=== PATIENT | male | born 1985 | race Caucasian/White ===

== ENCOUNTER 2017-12-19 06:47 | Observation (INO) | payer OTHER ==
[~2017-12-19] VITALS: Ht 188 cm; Wt 63.5 kg
[2017-12-19 07:55] LABS: Hematocrit 41.4 % (37.0-53.0); Hemoglobin 14.2 g/dL (13.5-17.5); Mean Corpuscular HGB 29.8 pg (26.0-34.0); Mean Corpuscular HGB Conc 34.3 g/dL (31.5-36.5); Mean Corpuscular Volume 87 fL (80-100); Mean Platelet Volume 10.4 fL (9.1-12.4); Platelet Count 224 K/mm3 (150-400); RDW Coefficient Variation 12.6 % (11.7-14.2); RDW Standard Deviation 40.1 fL (35.1-46.3); Red Blood Cell Count 4.77 M/mm3 (4.30-5.90); White Blood Cell Count 12.63 K/mm3 (4.00-11.30)
[2017-12-19 08:15] LABS: BASOPHILS PERCENT MAN 0 % (0-2); EOSINOPHILS PERCENT MAN 0 % (0-6); LYMPHOCYTES ABSOLUTE MAN 1.51 K/mm3 (0.84-5.20); LYMPHOCYTES PERCENT MAN 12 % (21-46); MONOCYTES ABSOLUTE MAN 0.75 K/mm3 (0.16-1.47); MONOCYTES PERCENT MAN 6 % (4-13); NEUTROPHILS ABSOLUTE MAN 10.35 K/mm3 (1.96-9.15); SEG NEUTROPHILS PERCENT MAN 82 % (41-73); TOTAL CELLS COUNTED 100
[2017-12-19 08:19] LABS: Alanine Aminotransfer (ALT/SGP 21 U/L (12-78); Albumin, Blood 4.1 g/dL (3.4-5.0); Albumin/Globulin Ratio 1.2 (0.8-1.8); Alk Phos 70 U/L (50-136); Anion Gap 13 mmol/L (6-16); Aspartate Aminotrans (AST/SGOT 23 U/L (12-37); Bilirubin, Total 0.5 mg/dL (0.1-1.0); Blood Urea Nitrogen 19 mg/dL (8-24); Bun/Creatinine Ratio 23.3 (12.0-20.0); CO2, Blood 21 mmol/L (21-32); Calcium, Blood 8.9 mg/dL (8.5-10.1); Chloride, Blood 106 mmol/L (98-108); Creatinine, Blood 0.82 mg/dL (0.60-1.20); Ethanol (Alcohol), Blood, Med <3 mg/dL; Globulin, Blood 3.5 g/dL (2.2-4.0); Glomerular Filtration Rate >60 (60-); Glucose, Blood 102 mg/dL (70-99); Potassium, Blood 3.7 mmol/L (3.5-5.5); Salicylate 4.5 mg/dL (2.8-20.0); Sodium, Blood 140 mmol/L (136-145); Total Protein, Blood 7.6 g/dL (6.4-8.2)
[2017-12-19 08:23] LABS: Thyroid Stimulating Hormone 0.947 uIU/mL (0.360-4.800)
[2017-12-19 08:24] LABS: Acetaminophen, Random <2.0 ug/mL (10.0-30.0)
[2017-12-19] MEDS ORDERED: OLAN5 PO (18:09)
== END 2017-12-19 19:16 | disposition home or self-care (01) ==
LOC: ER 06:47 → EOR 06:48
PROVIDERS: Emergency Medicine
DX: F23 Brief psychotic disorder (principal); F15.90 Other stimulant use, unspecified, uncomplicated; F12.90 Cannabis use, unspecified, uncomplicated
CPT/HCPCS: 36415; 80053; 84443; 85025; 96372; 99285; G0378; G0480; J1200; J1630; J2060; Q0163

== ENCOUNTER 2020-03-03 19:00 | Inpatient (IN) | payer OTHER ==
[~2020-03-03] VITALS: Ht 182.9 cm; Wt 65.6 kg
[~2020-03-03 19:00] MED LIST: OLAN5 PO
[2020-03-03 19:29] LABS: Hematocrit 37.3 % (37.0-53.0); Hemoglobin 13.3 g/dL (13.5-17.5); Mean Corpuscular HGB 29.8 pg (26.0-34.0); Mean Corpuscular HGB Conc 35.7 g/dL (31.5-36.5); Mean Corpuscular Volume 84 fL (80-100); Mean Platelet Volume 10.7 fL (9.1-12.4); RDW Coefficient Variation 12.9 % (11.7-14.2); RDW Standard Deviation 39.3 fL (35.1-46.3); Red Blood Cell Count 4.46 M/mm3 (4.30-5.90); White Blood Cell Count 9.01 K/mm3 (4.00-11.30)
[2020-03-03 19:45] LABS: Platelet Count 30 K/mm3 (150-400)
[2020-03-03 19:48] LABS: BAND PERCENT MAN 17 % (0-8); BASOPHILS PERCENT MAN 0 % (0-2); EOSINOPHILS ABSOLUTE MAN 0.18 K/mm3 (0.00-0.68); EOSINOPHILS PERCENT MAN 2 % (0-6); LYMPHOCYTES ABSOLUTE MAN 0.36 K/mm3 (0.84-5.20); LYMPHOCYTES PERCENT MAN 4 % (21-46); MONOCYTES ABSOLUTE MAN 0.81 K/mm3 (0.16-1.47); MONOCYTES PERCENT MAN 9 % (4-13); NEUTROPHILS ABSOLUTE MAN 7.65 K/mm3 (1.96-9.15); SEG NEUTROPHILS PERCENT MAN 68 % (41-73); TOTAL CELLS COUNTED 100
[2020-03-03 19:52] LABS: Source, Urine Clean Catch
[2020-03-03 19:54] LABS: Bilirubin, Urine Neg (Neg); Blood, Urine 4+ (Neg); Glucose Qualitative, Urine Neg (Neg); Ketones, Urine Neg (Neg); Leukocyte Esterase, Urine Neg (Neg); Nitrite, Urine Neg (Neg); Protein, Urine 2+ (Neg); Urobilinogen, Urine NORM (Normal)
[2020-03-03 19:59] LABS: Appearance, Urine Clear (Clear); Color, Urine Yellow (P-Yellow)
[2020-03-03 20:01] LABS: Bacteria Few /hpf; Mucus Light (0-Heavy); Squamous Epithelial Cells Rare /hpf (Few); White Blood Cells, Urine 0-2 /hpf (0-5)
[2020-03-03 20:05] LABS: U Amphetamine Screen DETECTED; U Barbituate Screen Not Detected; U Benzodiazapine Screen Not Detected; U Buprenorphine Screen Not Detected; U Cannabinoids Screen DETECTED; U Cocaine Screen Not Detected; U Methadone Screen Not Detected; U Methamphetamine Screen DETECTED; U Opiates Screen Not Detected; U Oxycodone Screen Not Detected; U Phencyclidine Screen Not Detected; U Propoxyphene Screen Not Detected
[2020-03-03 20:14] LABS: Alanine Aminotransfer (ALT/SGP 361 U/L (12-78); Albumin, Blood 2.6 g/dL (3.4-5.0); Albumin/Globulin Ratio 0.8 (0.8-1.8); Alk Phos 331 U/L (50-136); Anion Gap 11 mmol/L (6-16); Aspartate Aminotrans (AST/SGOT 323 U/L (12-37); Bilirubin, Total 1.9 mg/dL (0.1-1.0); Blood Urea Nitrogen 15 mg/dL (8-24); Bun/Creatinine Ratio 20.8 (12.0-20.0); CO2, Blood 22 mmol/L (21-32); Calcium, Blood 7.9 mg/dL (8.5-10.1); Chloride, Blood 98 mmol/L (98-108); Creatinine, Blood 0.72 mg/dL (0.60-1.20); Globulin, Blood 3.4 g/dL (2.2-4.0); Glomerular Filtration Rate >60 (60-); Glucose, Blood 102 mg/dL (70-99); Potassium, Blood 3.4 mmol/L (3.5-5.5); Sodium, Blood 131 mmol/L (136-145)
[2020-03-03 21:29] LABS: CPK Creatine Kinase 48 U/L (39-308); Ethanol (Alcohol), Blood, Med <3 mg/dL
[2020-03-03 21:30] LABS: Prothrombin Time Results 10.7 Sec (9.7-11.5)
--- NOTE | 2020-03-03 23:15 | NUR ---
ADMISSION TO PCU Report recieved from Sree Harper and pt arrived to PCU at 2230. Alert and oriented, potassium chloride infusing into LFA PIV and NS infusing. Per ED RN Sree, second liter of NS is what is currently infusing. VSS at time of arrival. Pt immediately needed to void, urinal given and pt voided independantly at bedside. He transferred independantly from [facility] to bed. Tele showing NSR in 70-80's. Pt denying pain at this time. See admission assessment for detailed systems assessment. Pt denies methamphetamine or amphetamine usage, however tox screen shows positive on both. monitoring closely for withdrawl symptoms. Pt is sleepy, arrousable, expresses needs with call light.
--- NOTE | 2020-03-04 00:56 | NUR ---
UPDATE HR increase to 120, temperature 100.4, pt shaking in bed stating "I'm so cold". Bilateral upper extremities clenched tightly and contracted with color change to bilateral forearms, pt able to relax arms and color in bilateral upper extremities normalizes. BP slightly elevated, respiration rate increased, oxygen saturations >95%. 2L oxygen placed on pt, tylenol give. Pt positive for meth and appears to be withdrawing. He is fully alert and oriented. 0.5 mg dilauded given per eMar and pt shaking slowed, BP wnl, respiration rate normalized and pt endorses relief within 4 minutes of administration. Will continue to monitor. primer charger aware.
[2020-03-04 04:09] LABS: BASOPHILS ABSOLUTE AUTO 0.05 K/mm3 (0.00-0.23); BASOPHILS PERCENT AUTO 0 % (0-2); Hematocrit 37.3 % (37.0-53.0); Hemoglobin 12.7 g/dL (13.5-17.5); LYMPHOCYTES ABSOLUTE AUTO 0.35 K/mm3 (0.84-5.20); LYMPHOCYTES PERCENT AUTO 3 % (21-46); MONOCYTES ABSOLUTE AUTO 0.75 K/mm3 (0.16-1.47); MONOCYTES PERCENT AUTO 7 % (4-13); Mean Corpuscular HGB 29.5 pg (26.0-34.0); Mean Platelet Volume 10.9 fL (9.1-12.4); RDW Coefficient Variation 13.2 % (11.7-14.2); RDW Standard Deviation 42.1 fL (35.1-46.3); Red Blood Cell Count 4.31 M/mm3 (4.30-5.90); White Blood Cell Count 11.22 K/mm3 (4.00-11.30)
[2020-03-04 04:14] LABS: EOSINOPHILS ABSOLUTE AUTO 0.05 K/mm3 (0.00-0.68); EOSINOPHILS PERCENT AUTO 0 % (0-6); IMMATURE GRAN ABSOLUTE AUTO 0.07 K/mm3 (0.00-0.10); IMMATURE GRAN PERCENT AUTO 1 % (0-1); Mean Corpuscular Volume 87 fL (80-100); NEUTROPHILS ABSOLUTE AUTO 9.95 K/mm3 (1.96-9.15); NEUTROPHILS PERCENT AUTO 89 % (41-73)
[2020-03-04 04:15] LABS: Platelet Count 27 K/mm3 (150-400)
[2020-03-04 04:25] LABS: Alanine Aminotransfer (ALT/SGP 302 U/L (12-78); Albumin, Blood 2.2 g/dL (3.4-5.0); Albumin/Globulin Ratio 0.7 (0.8-1.8); Alk Phos 350 U/L (50-136); Anion Gap 9 mmol/L (6-16); Aspartate Aminotrans (AST/SGOT 235 U/L (12-37); Bilirubin, Total 2.5 mg/dL (0.1-1.0); Blood Urea Nitrogen 15 mg/dL (8-24); Bun/Creatinine Ratio 17.3 (12.0-20.0); CO2, Blood 19 mmol/L (21-32); Calcium, Blood 7.3 mg/dL (8.5-10.1); Chloride, Blood 108 mmol/L (98-108); Creatinine, Blood 0.87 mg/dL (0.60-1.20); Globulin, Blood 3.3 g/dL (2.2-4.0); Glomerular Filtration Rate >60 (60-); Glucose, Blood 95 mg/dL (70-99); Potassium, Blood 3.6 mmol/L (3.5-5.5); Sodium, Blood 136 mmol/L (136-145); Total Protein, Blood 5.5 g/dL (6.4-8.2)
--- NOTE | 2020-03-04 07:50 | NUR ---
SHIFT SUMMARY See previous notes for acute events overnight. Alert and oriented, sleeping on and off throughout shift, voiding independantly at bedside, NS infusing at 150 mls/hr per orders. ABx infusing per orders. Pt medicated for pain as needed, tylenol for fever. Pt endorses continued pain "but it's manageable right now". Report off to ANDREIA Bull, who assumes care.
--- NOTE | 2020-03-04 17:34 | NUR ---
SHIFT SUMMARY PT ALERT AND ORIENTED. VS STABLE. HR NSR. PT COMPLAINS OF HEADACHE THROUGHOUT SHIFT AND PAIN "EVERYWHERE". PT MEDICATED NEEDED. PT PULLED TWO IV'S THIS SHIFT. NEW IV PLACED TO LEFT AC. NS INFUSING PER ORDERS. PT INDEPENDENT IN THE ROOM. WILL CONTINUE TO MONITOR AND REPORT TO ONCOMING RN. CALL LIGHT IN REACH.
[2020-03-05 04:10] LABS: BASOPHILS ABSOLUTE AUTO 0.03 K/mm3 (0.00-0.23); BASOPHILS PERCENT AUTO 0 % (0-2); EOSINOPHILS ABSOLUTE AUTO 0.19 K/mm3 (0.00-0.68); EOSINOPHILS PERCENT AUTO 2 % (0-6); Hematocrit 33.9 % (37.0-53.0); Hemoglobin 11.6 g/dL (13.5-17.5); IMMATURE GRAN ABSOLUTE AUTO 0.06 K/mm3 (0.00-0.10); IMMATURE GRAN PERCENT AUTO 1 % (0-1); LYMPHOCYTES ABSOLUTE AUTO 1.73 K/mm3 (0.84-5.20); LYMPHOCYTES PERCENT AUTO 22 % (21-46); MONOCYTES ABSOLUTE AUTO 1.49 K/mm3 (0.16-1.47); MONOCYTES PERCENT AUTO 19 % (4-13); Mean Corpuscular HGB 29.9 pg (26.0-34.0); Mean Corpuscular HGB Conc 34.2 g/dL (31.5-36.5); Mean Corpuscular Volume 87 fL (80-100); NEUTROPHILS ABSOLUTE AUTO 4.29 K/mm3 (1.96-9.15); NEUTROPHILS PERCENT AUTO 55 % (41-73); RDW Coefficient Variation 14.1 % (11.7-14.2); RDW Standard Deviation 45.3 fL (35.1-46.3); Red Blood Cell Count 3.88 M/mm3 (4.30-5.90); White Blood Cell Count 7.79 K/mm3 (4.00-11.30)
[2020-03-05 04:14] LABS: Platelet Count 28 K/mm3 (150-400)
[2020-03-05 04:30] LABS: Albumin, Blood 1.9 g/dL (3.4-5.0); Anion Gap 7 mmol/L (6-16); Blood Urea Nitrogen 12 mg/dL (8-24); Bun/Creatinine Ratio 14.9 (12.0-20.0); CO2, Blood 23 mmol/L (21-32); Calcium, Blood 7.2 mg/dL (8.5-10.1); Chloride, Blood 111 mmol/L (98-108); Glomerular Filtration Rate >60 (60-); Glucose, Blood 93 mg/dL (70-99); Phosphorus, Blood 3.5 mg/dL (2.5-4.9); Potassium, Blood 3.8 mmol/L (3.5-5.5); Sodium, Blood 141 mmol/L (136-145)
--- NOTE | 2020-03-05 05:13 | NUR ---
SHIFT SUMMARY PT SLEEPING IN ROOM COMFORTABLY AT THIS TIME. NO ACUTE CHANGES IN STATUS T/O NIGHT. PT SLEPT WELL. WOKE OCCASIONALLY TO ASK FOR MORE PAIN MEDS. PT REFUSING TYLENOL, PT REPORTS "IT DIDN'T WORK EARLIER, WHEN THE PAIN COMES IT FEELS LIKE MY BRAIN IS EXPLODING". PT WAS MEDICATED PER EMAR FOR PAIN. RESP EVEN UNLABORED ON RA W/ SATS >92%. PT DENIED CP OR SOB T/O NIGHT. DENIED OTHER NEEDS. PT IND IN ROOM USING URINAL AT BEDSIDE. CALL LIGHT IN REACH.
[2020-03-05 08:09] LABS: HBSAG SCREEN Negative (Negative); HEP A AB, IGM Negative (Negative); HEP B CORE AB, IGM Negative (Negative); HEP C VIRUS AB <0.1 (0.0-0.9)
[2020-03-05 08:47] LABS: EBV AB VCA, IGM <36.0 U/mL (0.0-35.9)
--- NOTE | 2020-03-05 18:16 | NUR ---
PCU DISCHARGE SUMMARY PATIENT LEFT UNIT VIA AMBULATION OUT OF HOSPITAL ACCOMPANIED BY THIS RN TO ER TENT. PATIENT REPORTED THAT HE FELT OKAY. NO S/SX OF DISTRESS NOTED. PATIENT EDUCATED FOR FOLLOW UP APPTS AND LIFE STYLE CHANGES FOR NEW DIAGNOSIS AND POSSIBLE HEP C. APPTS MADE WITH MD GOEL AND MD GARIBAY. PATIENT VERBALIZED UNDERSTANDING. PATIENT ALSO VERBALIZED UNDERSTANDING OF ETOH AND SMOKING CESSATION. PATIENTS MOTHER UPDATED ON DISCHARGE INSTRUCTIONS AND HOSPITAL CARE/FINDINGS. PATIENT LEFT FOR HOME WITH MOTHER AND BELONGINGS WITH PATIENT.
== END 2020-03-05 15:00 | disposition home or self-care (01) | DRG 442 ==
LOC: ER 19:00 → PCU 22:15
PROVIDERS: Emergency Medicine; Family Medicine; Nurse Practitioner Acute Care; ADMIT Internal Medicine
DX: B17.9 Acute viral hepatitis, unspecified (principal); E87.1 Hypo-osmolality and hyponatremia; F17.210 Nicotine dependence, cigarettes, uncomplicated; D69.6 Thrombocytopenia, unspecified; E87.6 Hypokalemia; D64.9 Anemia, unspecified; R16.2 Hepatomegaly with splenomegaly, not elsewhere classified; F15.920 Other stimulant use, unspecified with intoxication, uncomplicated; K52.9 Noninfective gastroenteritis and colitis, unspecified; R07.9 Chest pain, unspecified
CPT/HCPCS: 36415; 71045; 71046; 74177; 76705; 80053; 80069; 80074; 81001; 82550; 83605; 83690; 84484; 85025; 85610; 85730; 86644; 86645; 86664; 86665; 96361; 96374-59; 96375; 99285-25; A9270; G0480; J1170; J1200; J1885; J2405; J2543; J2765; J3480; J7030; Q9967

== ENCOUNTER 2022-06-16 23:07 | Observation (INO) | payer OTHER ==
[~2022-06-16] VITALS: Ht 182.9 cm; Wt 72.6 kg
[2022-06-17 02:05] LABS: U Amphetamine Screen DETECTED; U Barbituate Screen Not Detected; U Benzodiazapine Screen Not Detected; U Buprenorphine Screen Not Detected; U Cannabinoids Screen DETECTED; U Cocaine Screen Not Detected; U Methadone Screen Not Detected; U Methamphetamine Screen DETECTED; U Opiates Screen Not Detected; U Oxycodone Screen Not Detected; U Phencyclidine Screen Not Detected; U Propoxyphene Screen Not Detected
[2022-06-17 02:15] LABS: BASOPHILS ABSOLUTE AUTO 0.06 K/mm3 (0.00-0.23); BASOPHILS PERCENT AUTO 1 % (0-2); EOSINOPHILS ABSOLUTE AUTO 0.08 K/mm3 (0.00-0.68); EOSINOPHILS PERCENT AUTO 1 % (0-6); Hemoglobin 14.5 g/dL (13.5-17.5); IMMATURE GRAN ABSOLUTE AUTO 0.02 K/mm3 (0.00-0.10); IMMATURE GRAN PERCENT AUTO 0 % (0-1); LYMPHOCYTES ABSOLUTE AUTO 2.12 K/mm3 (0.84-5.20); LYMPHOCYTES PERCENT AUTO 16 % (21-46); MONOCYTES ABSOLUTE AUTO 0.97 K/mm3 (0.16-1.47); MONOCYTES PERCENT AUTO 7 % (4-13); Mean Corpuscular HGB 28.4 pg (26.0-34.0); Mean Corpuscular Volume 86 fL (80-100); Mean Platelet Volume 9.8 fL (9.1-12.4); NEUTROPHILS ABSOLUTE AUTO 9.85 K/mm3 (1.96-9.15); NEUTROPHILS PERCENT AUTO 75 % (41-73); Platelet Count 304 K/mm3 (150-400); RDW Coefficient Variation 13.5 % (11.7-14.2); RDW Standard Deviation 43.2 fL (35.1-46.3)
[2022-06-17 02:30] LABS: Bun/Creatinine Ratio 13.7 (12.0-20.0); Calcium, Blood 8.9 mg/dL (8.5-10.1); Creatinine, Blood 0.95 mg/dL (0.60-1.20); Potassium, Blood 4.5 mmol/L (3.5-5.5)
== END 2022-06-17 05:35 | disposition home or self-care (01) ==
LOC: ER 23:07 → EOR 23:08
PROVIDERS: ADMIT Emergency Medicine
DX: F15.159 Other stimulant abuse with stimulant-induced psychotic disorder, unspecified (principal); F17.200 Nicotine dependence, unspecified, uncomplicated
CPT/HCPCS: 36415; 80048; 85025; 99285; G0378